=== PATIENT | male | born 1980 | race Caucasian/White ===

== ENCOUNTER → 2023-09-11 | Day surgery (SDC) | payer OTHER ==
[~2023-09-11] MED LIST: ATORVASTATIN CA20 MG PO; BENADRYL25 M1 PO; CALCITRIOL0.5 MCG PO; CYMBALTA30 MG; DEXMEDETOMIDINE HCL 200 MCG/2 ML VIAL ONE; DIALYVITE 800800 MCG PO; LEVETIRACETAM500 MG PO; LIDOCAINE HCL 2% LOCAL INJ 5 ML SDV VIAL INJ ONE; LYRICA100 MG PO; METOPROLOL; PROPOFOL IV EMULSION 10 MG/ML 50 ML VIAL IV ONE; SODIUM CHLORIDE 0.9% 500ML 500 ML ONE; TUMS ULTRA400 MG PO; TYLENOL EXTRA500 MG PO; ULTRAM 50MG50 MG PO
[2023-09-11 13:23] LABS: BASOPHILS # (AUTO) 0.1 (0.0-0.1); BASOPHILS % 0.9 % (0.0-1.0); EOSINOPHILS # (AUTO) 0.4 (0.0-0.4); EOSINOPHILS % 8.1 % (0.0-6.0); HEMATOCRIT 34.8 % (38.2-49.6); HEMOGLOBIN 11.4 g/dL (14.0-18.0); LYMPHOCYTES # (AUTO) 1.8 (1.0-3.2); LYMPHOCYTES % 32.5 % (18.0-39.1); MEAN CORPUSCULAR HEMOGLOBIN 33.9 pg (28-32); MEAN CORPUSCULAR HGB CONC 32.8 g/dL (31-35); MEAN CORPUSCULAR VOLUME 103.6 fL (81-99); MONOCYTES # (AUTO) 0.4 (0.2-0.8); MONOCYTES % 7.9 % (4.4-11.3); NEUTROPHILS # (AUTO) 2.7 (2.1-6.9); PLATELET COUNT 126 x10e3/uL (140-360); RED BLOOD COUNT 3.36 x10e6/uL (4.3-5.7); RED CELL DISTRIBUTION WIDTH 16.1 % (11.7-14.4); WHITE BLOOD COUNT 5.42 x10e3/uL (4.8-10.8)
[2023-09-11 13:30] LABS: INR 1.02; PARTIAL THROMBOPLASTIN TIME 29.1 seconds (23.8-35.5)
[2023-09-11 13:33] LABS: ANION GAP 18.4 mmol/L (8-16); CALCIUM 9.1 mg/dL (8.4-10.2); CREATININE, SERUM 9.79 mg/dL (0.72-1.25); POTASSIUM 5.4 mmol/L (3.5-5.1)
[2023-09-11 16:10] VITALS: BP 101/55; PULSE 55; RESP 14; O2SAT 97
== END | disposition home or self-care (01) ==
LOC: OR 12:00
PROVIDERS: ATTEND Internal Medicine Gastroenterology
DX: Z12.11 Encounter for screening for malignant neoplasm of colon (principal); D12.3 Benign neoplasm of transverse colon; K62.1 Rectal polyp; K64.8 Other hemorrhoids; I12.0 Hypertensive chronic kidney disease with stage 5 chronic kidney disease or end stage renal disease; N18.6 End stage renal disease; Z99.2 Dependence on renal dialysis; J44.9 Chronic obstructive pulmonary disease, unspecified; E78.00 Pure hypercholesterolemia, unspecified; R56.9 Unspecified convulsions; Z71.3 Dietary counseling and surveillance; Z68.29 Body mass index [BMI] 29.0-29.9, adult; Z01.810 Encounter for preprocedural cardiovascular examination; Z94.0 Kidney transplant status; Z79.899 Other long term (current) drug therapy
CPT/HCPCS: 36415; 45380; 45385; 80048; 85025; 85610; 85730; 88305; 93005; J2001; J2704; J7040; 45378